=== PATIENT | female | born 1960 | race Caucasian/White ===

== ENCOUNTER 2025-05-08 08:29 | Day surgery (SDC) | payer MEDICARE, OTHER ==
--- NOTE | 2025-05-01 15:48 | ELECTROCARDIOGRAPH REPORT ---
[facility] Test Date: 2025-05-01 Test Time: 15:44:32 Pat Name: CARLEY MUNIZ Department: [facility]-PRE-OP Patient ID: [facility]-[id number] Room: Gender: F Stylist Apprentice: CRYSTAL : 1960 Requested By: CHIN MARTINI Order Number: [id number] Reading MD: Dr. Andrei Lao Measurements Intervals [place] Rate: 86 P: 54 SC: 169 QRS: 11 QRSD: 82 T: 48 QT: 335 QTc: 401 Interpretive Statements Sinus rhythm Left atrial enlargement Anteroseptal infarct, age indeterminate Electronically Signed On 05-04-2025 8:13:[address] Andrei Lao Please click the below link to view image of tracing.
[2025-05-01 16:12] LABS: BASOPHILS # (AUTO) 0.1 X10'3 (0-0.2); BASOPHILS % (AUTO) 0.9 % (0-1); EOSINOPHILS # (AUTO) 0.3 X10'3 (0-0.9); EOSINOPHILS % (AUTO) 5.9 % (0-6); LYMPHOCYTES # (AUTO) 1.4 X10'3 (1.1-4.8); LYMPHOCYTES % (AUTO) 23.6 % (21-51); MEAN CORPUSCULAR HEMOGLOBIN 26.9 PG (27.0-31.0); MEAN CORPUSCULAR HGB CONC 32.9 g/dL (33.0-36.5); MEAN CORPUSCULAR VOLUME 81.7 FL (78-98); MONOCYTES # (AUTO) 0.7 X10'3 (0-0.9); MONOCYTES % (AUTO) 11.3 % (2-12); NEUTROPHILS # (AUTO) 3.4 X10'3 (1.8-7.7); NEUTROPHILS % (AUTO) 58.3 % (42-75); PRE OP HEMATOCRIT 41.8 % (35.0-45.0); PRE OP HEMOGLOBIN 13.8 g/dL (12.0-16.0); PRE OP PLATELET COUNT 345 X10'3 (140-440); PRE OP WHITE BLOOD COUNT 5.8 10'3 (4.8-10.8); RED BLOOD COUNT 5.12 X10'6 (4.20-5.60); RED CELL DISTRIBUTION WIDTH 14.6 % (11.5-14.5)
[2025-05-01 16:27] LABS: ALBUMIN 3.8 G/DL (3.4-5.0); ALBUMIN/GLOBULIN RATIO 1.2 (1.1-1.5); ALKALINE PHOSPHATASE 128 IU/L (46-116); BLOOD UREA NITROGEN 25 MG/DL (7-18); BUN/CREATININE RATIO 25.5 (10.0-20.0); CALCIUM 9.9 MG/DL (8.5-10.1); CHLORIDE 107 MMOL/L (99-107); CREATININE 0.98 MG/DL (0.40-0.90); PRE OP ALT 38 U/L (30-65); PRE OP ANION GAP 4 (8-16); PRE OP AST 21 U/L (10-37); PRE OP BILIRUB, TOTAL 0.4 MG/DL (0.0-1.0); PRE OP GLUCOSE 97 MG/DL (70-104); PRE OP POTASSIUM 4.2 MMOL/L (3.4-5.1); PRE OP SODIUM 145 MMOL/L (135-145); TOTAL CARBON DIOXIDE 33.9 MMOL/L (24-32); eGFR 57 ML/MIN
[2025-05-08] VITALS (9 sets, daily range): BP systolic 110–141; BP diastolic 55–78; PULSE 81–85; RESP 11–20; TEMP 97.9; O2SAT 97–100
[~2025-05-08] VITALS: Ht 167.6 cm; Wt 96.9 kg
[2025-05-08] MEDS: ceFAZolin 2gm/dext,iso 50mL 50 ML IV ONE (05:30)
[~2025-05-08 08:29] MED LIST: ALBU8HFA INH; ATOR20TA66 PO; FERR325T35 PO; LEVO112T5 PO; LOSA1TAB36 PO; METF-436 PO; MONT-40 PO; OMEP20CA16 PO
[2025-05-08] MEDS: ringers solution, lacted 1,000 ML IV SCH (09:02)
[2025-05-08] MEDS: famotidine 20mg tablet PO ONE (09:02)
[2025-05-08] MEDS ORDERED: BUPIVAcaine 2.5mg/ml inj 50ml vial (contains preservative) ONE (09:39)
[2025-05-08] MEDS ORDERED: BUPIVACAINE liposomal/PF 13.3 MG/ML 10mL vial IM ONE (09:40)
[2025-05-08] MEDS ORDERED: LIDOcaine 1% 30ml preserv. free vial ONE (09:40)
[2025-05-08] MEDS ORDERED: HYDROmorphone/PF 0.2 MG/ML SYRINGE IV PRN ×2 (10:25)
[2025-05-08] MEDS ORDERED: ondansetron/PF 4mg/2ml inj IV PRN (10:25)
[2025-05-08] MEDS ORDERED: hydrALAZINE 20mg/ml inj. IV PRN (10:25)
[2025-05-08] MEDS ORDERED: ringers solution, lacted 1,000 ML IV SCH (10:25)
[2025-05-08] MEDS ORDERED: morphine 2 MG/ML inj. syringe IV PRN (10:25)
[2025-05-08] MEDS ORDERED: morphine 4 MG/ML inj SYRINge IV PRN (10:25)
[2025-05-08] MEDS ORDERED: labetalol 20mg/4ml (5mg/ml) syringe IV PRN (10:25)
[2025-05-08] MEDS ORDERED: sevoflurane 250ml liquid IH ONE (11:00)
--- NOTE | 2025-05-08 11:07 | HISTORY AND PHYSICAL ---
History & Physical Providers to CC CC: CHIN MARTINI MD ~ History of Present Illness Reason for Admit\Complaint: Spigelian hernia History of Present Illness Interval history and physical exam Patient is here today for elective repair of a spigelian hernia She has a left lower quadrant hernia defect that is quite symptomatic She was seen in the office greater than 30 days ago but denies any change in her past medical history (please see previous history and physical exam for all pertinent details) She is scheduled for robotic assisted, laparoscopic spigelian hernia repair with mesh Allergies: Coded Allergies: aspirin (Verified Allergy, Severe, ANAPHYLAXIS, 05/07/25) Home Medications Home Medications Active Reported Metformin Hcl 500 Mg Tablet 1 Tab PO BIDBL Pro-Air Inhaler (Albuterol) 8.5 Gm Inhaler 2 Puffs INH Q4HPRN PRN Ferosul (Ferrous Sulfate) 325 Mg (65 Mg Iron) Tablet 325 Mg PO DAILY Losartan-Hctz 50-12.5 Mg Tab (Losartan/Hydrochlorothiazide) 50 Mg-12.5 Mg Tablet 1 Tab PO DAILY LIPITOR tablet (Atorvastatin Calcium) 20 Mg Tablet 1 Tab PO DAILY Omeprazole 20 Mg Capsule.dr 1 Cap PO DAILY Montelukast Sodium 10 Mg Tablet 1 Tab PO DAILY Levothyroxine Sodium 112 Mcg Tablet 1 Tab PO DAILY ROS ROS Reviewed and negative Exam Vitals: Vital Signs Date Time Temp Pulse Resp B/P (MAP) Pulse Ox O2 Delivery O2 Flow Rate FiO2 05/08/25 09:55 16 98 Room Air 05/08/25 09:51 97.9 81 141/78 (99) General: 65-year-old female in no acute distress Chest: Lungs clear to auscultation bilaterally Cardiovascular: Regular rate and rhythm without murmurs Abdomen: Abdomen soft and nondistended In the left lower quadrant at the line of the linea semilunaris, just above the left inguinal canal as a palpable and partially reducible mass with the associated cough impulse Problems: (1) Spigelian hernia Assessment & Plan: The risks, benefits, and alternatives to a robotic assisted, laparoscopic spigelian hernia repair with mesh were discussed with the patient. Risks include, but are not limited to, bleeding, infection, injury to intra- abdominal structures, hernia recurrence and chronic postoperative pain. Patient verbalized understanding and wishes to proceed with surgery. We will do so today as scheduled CHIN MARTINI MD May 08, 2025 11:07
[2025-05-08] MEDS ORDERED: fentaNYL/PF 50MCG/1 ML 2ML syringe ONE (11:11)
[2025-05-08] MEDS ORDERED: midazolam 1 mg/ML 2ml injection ONE (11:12)
[2025-05-08] MEDS ORDERED: BUPIVAcaine/PF 2.5mg/ml (0.25%) 10ml vial ONE (11:14)
[2025-05-08] MEDS: BUPIVACAINE liposomal/PF 13.3 MG/ML 10mL vial IM ONE (11:56)
[2025-05-08] MEDS ORDERED: ondansetron/PF 4mg/2ml inj ONE (13:14)
[2025-05-08] MEDS ORDERED: rocuronium 10mg/ml inj IV ONE (13:14)
[2025-05-08] MEDS ORDERED: propofol inj 20 ML IV ONE (13:14)
[2025-05-08] MEDS ORDERED: dexamethasone sod phosphate 4mg/ml inj. ONE (13:14)
[2025-05-08] MEDS ORDERED: sugammadex 200mg/2ml injection IV ONE (13:20)
--- NOTE | 2025-05-08 13:53 | OPERATIVE REPORT ---
Operative Report Providers to CC CC: MOI MARTINI MD ~ Date of Procedure: May 08, 2025 Pre-Operative Diagnosis: Spigelian hernia Post-Operative Diagnosis 4 cm incarcerated incisional hernia Procedure Performed Robotic assisted, laparoscopic incarcerated 4 cm incisional hernia repair with mesh Transversus abdominis plane nerve block by injection using 266 mg of Exparel Surgeon: Moi Martini MD FACS Valve Inserter None Anesthesiologist: Prince Tiwari Type of Anesthesia: General Findings: 4 cm fascial defect in the left lower quadrant, lateral to the linea semilunaris and associated with a surgical scar consistent with incisional hernia Large amount of incarcerated sigmoid colon Wound class I Complications None Prosthetics\Implants used: 5 x 10 cm ProGrip mesh with a small patch of coated polyester mesh over exposed portion of ProGrip Estimated Blood Loss: 10 cc Specimen Removed: None Description of Procedure: Patient was brought to the operating room and identified by the nursing staff and the attending physician. Patient was placed supine and general anesthesia was induced. Preoperative antibiotics were given. Abdomen was prepped and draped in the standard sterile fashion. Veress needle technique was used at ferreira's point in the abdomen was insufflated without incident. Optical trocar was used to gain access to the abdomen under laparoscopic visualization. No gross abnormalities were noted within the mid abdominal compartment. In the left lower quadrant, there was omentum and what appeared to be sigmoid colon, tented up to the anterior abdominal wall and herniated through what appeared to be a fascial defect. This was not reducible with the external compression. Additional, 8.5 mm robotic trocars were placed in the left mid abdomen and right lower quadrant under laparoscopic visualization. Patient was placed in Trendelenburg position with the left side up. Mesh and suture was passed into the abdomen and the [employer] Shanelle robotic arm was docked to the patient. Instruments were guided into the abdomen under laparoscopic visualization. Attempts at mobilizing the herniated and incarcerated sigmoid colon was unsuccessful. It was densely adherent to the hernia sac. A preperitoneal plane was then developed above the defect and within the preperitoneal space, the plane was developed and carried towards the fascial defect. In doing so, I was able to enter the preperitoneal fat space within the hernia sac and continued the mobilization. I was able to mobilize and reduce the sigmoid colon, however, it continued to be densely adherent to the hernia sac. Peritoneum develop several peritoneal rents and a large amount of the hernia sac was left adherent to the sigmoid colon once it was reduced. The defect measured 4 cm x 2 cm. It was quite lateral to the linea semilunaris and correlated with a surgical trocar scar in the left lower quadrant. This was most consistent with an incisional hernia. It was well above the inguinal canal. Preperitoneal space was developed circumferentially to the defect allowing adequate space for good mesh overlap. The defect was closed with an absorbable running V lock suture. It easily opposed. ProGrip mesh was passed into the preperitoneal space, centered at the defect and measured about five or 6 x 10 cm. The peritoneal rent was then closed, however, due to several areas of peritoneum that were removed with the hernia sac, I was not able to completely cover the ProGrip mesh. A small piece of coated polyester mesh was passed into the abdomen and centered at the exposed portion of mesh. This was sutured in place with the absorbable suture. [place] were retrieved and instruments removed. The de Shanelle robotic arm was undocked from the patient. Edges of the mesh patch overlying the exposed area of ProGrip was secured with absorbable tacks. The 12 mm port site was removed and its fascial defect closed percutaneously with 0 Vicryl suture. Remaining po rts were removed and the abdomen was allowed to deflate. Skin was closed at all sites with a 4-0 Monocryl sutures in a subcuticular fashion. Dressings were applied. Abdominal binder was applied. Patient was awakened and taken to the postanesthesia care unit in stable condition. Counts repoted as correct: Yes MOI AMRTINI MD May 08, 2025 13:53
[2025-05-08] MEDS: oxyCODONE/APAP 5-325mg tablet PO PRN (14:41)
--- NOTE | 2025-05-10 11:40 | PATHOLOGY REPORT ---
[facility] [address] [place] [address] SURGICAL PATHOLOGY REPORT CaseNumber: [id number] Surgeon:Moi Deluna M.D. CLINICAL INFORMATION CLINICAL INFORMATION: Cholecystitis. Ventral hernia. DIAGNOSIS DIAGNOSIS: GALLBLADDER, ROBOTIC-ASSISTED LAPAROSCOPIC GREGG - ACUTE CHOLECYSTITIS WITH CHOLELITHIASIS - NO DYSPLASIA OR MALIGNANCY MICROSCOPIC DESCRIPTION MICROSCOPIC DESCRIPTION: Performed. GROSS DESCRIPTION GROSS DESCRIPTION: Received in a container of formalin labeled with the patient's name, number, and " gallbladder" is a disrupted gallbladder which measures 9 cm long by 3 cm in diameter. The serosa is s mooth and caldwell. The surgical bed is unremarkable. Sectioning reveals a small amount of viscous dark gr een bile and a 3.5 cm yellow-caldwell stone. The mucosa is red and granular. A discrete mass lesion is no t identified. The wall of the gallbladder measures up to 0.9 cm thick. Welfare Worker sections of the neck and wall of the gallbladder are submitted as A1.The time at which the specimen was removed was 1628. The time at which the specimen was placed in formalin was 1631. (sdb) Electronically signed by: Tejinder Maxwell M.D. 05/10/2025 11:08:00 AM
== END 2025-05-08 14:49 | disposition home or self-care (01) ==
LOC: PAS 08:29
PROVIDERS: ATTEND Surgery
DX: K43.0 Incisional hernia with obstruction, without gangrene (principal); I10 Essential (primary) hypertension; K21.9 Gastro-esophageal reflux disease without esophagitis; Z79.890 Hormone replacement therapy; Z79.899 Other long term (current) drug therapy; Z88.6 Allergy status to analgesic agent; Z98.890 Other specified postprocedural states; Z88.8 Allergy status to other drugs, medicaments and biological substances
CPT/HCPCS: 36415; 49594; 64488; 80053; 82948; 85025; 88304; 93005; A4215; A4618; C1713; C1781; J0666; J1100; J2003; J2250; J2405; J2704; J3010; J3490; J7030; J7120; Z7506; Z7508; Z7512; Z7610

== ENCOUNTER 2025-05-12 19:21 | Emergency (ER) | payer MEDICARE, OTHER ==
[~2025-05-12] VITALS: Ht 167.6 cm; Wt 95.5 kg
[2025-05-12 19:29] VITALS: BP 138/78; PULSE 77; RESP 18; TEMP 98.4; O2SAT 99
--- NOTE | 2025-05-12 20:10 | Physician Documentation ---
History of Present Illness ~ Chief Complaint: Wound Re-Check Stated Complaint: HERNIA OPERATION AND NOT SURE IF IT IS NORMAL Time Seen by MD: 19:31 Source: patient, family, RN/MD HPI Patient is seen today with complaints of bruising after her hernia surgery. Patient states date of surgery with on Wednesday about five days ago. Patient denies any appetite changes or nausea, vomiting, diarrhea, chest pain, shortness of breath, fevers or chills or increased abdominal pain. Patient has no other concern today or complaint other than the bruising that is now in her skin in the pubic area. She has no other concern or complaint at this time. Medication Reconciliation Allergies: Coded Allergies: aspirin (Verified Allergy, Severe, ANAPHYLAXIS, 05/12/25) Scheduled Atorvastatin Calcium (LIPITOR tablet), 1 TAB PO DAILY, (Reported) Ferrous Sulfate (Ferosul), 325 MG PO DAILY, (Reported) Levothyroxine Sodium (Levothyroxine Sodium), 1 TAB PO DAILY, (Reported) Losartan/Hydrochlorothiazide (Losartan-Hctz 50-12.5 Mg Tab), 1 TAB PO DAILY, (Reported) Metformin Hcl (Metformin Hcl), 1 TAB PO BIDBL, (Reported) Montelukast Sodium (Montelukast Sodium), 1 TAB PO DAILY, (Reported) Omeprazole (Omeprazole), 1 CAP PO DAILY, (Reported) Scheduled PRN albuterol inhaler (Pro-Air Inhaler), 2 PUFFS INH Q4HPRN PRN for wheezing, (Reported) Review of Systems Constitutional: Denies: chills, fever, weakness Eyes: Denies: pain, blurred vision ENT: Denies: ear pain, nose pain, throat pain, mouth pain Respiratory: Denies: cough, shortness of breath Cardiovascular: Denies: chest pain, palpitations Gastrointestinal: Denies: abdominal pain, nausea, vomiting Genitourinary: Denies: burning, dysuria Female Genitalia: Denies: vaginal discharge, pelvic pain Neurological: Denies: headache, dizziness Musculoskeletal: Denies: pain, swelling Integumentary: Denies: rash, lesions Allergic/Immunologic: Denies: hives, itching Hematologic/Lymphatic: Denies: no symptoms reported Psychiatric: Denies: depression, anxiety Physical Exam Vital Signs: Temperature: 98.4, Source: Oral, Heart Rate: 77, Respiratory Rate: 18, BP: 138/78, Pulse Oximetry: 99, Weight: 95.450 Physical Exam General: Awake and Alert, no acute distress. HEENT: Conjunctiva pink, Sclera clear, Mucus Membranes moist. Neck: Supple without masses and tenderness. Resp: Unlabored. Lungs clear to auscultation bilaterally. Heart: Regular Rate and rhythm, normal S1 and S2 without murmur, rub or gallop. Abdomen: Have appendicitis off, nondistended, no significant tenderness, can changes consistent with laparoscopic surgery of the abdomen, normoactive bowel sounds, patient does have superficial ecchymosis inferiorly in the pubic area/lower abdomen. Extremities: No cyanosis,clubbing or edema. Skin: Warm and Dry. Progress Results/Orders Results/Orders Vital Signs 05/12/25 19:29 Temp 98.4 Pulse 77 Resp 18 B/P (MAP) 138/78 Pulse Ox 99 Medical Decision Making Findings Patient is seen today with complaints of bruising after her hernia surgery. Patient states date of surgery with on Wednesday about five days ago. Patient denies any appetite changes or nausea, vomiting, diarrhea, chest pain, shortness of breath, fevers or chills or increased abdominal pain. Patient has no other concern today or complaint other than the bruising that is now in her skin in the pubic area. She has no other concern or complaint at this time. Patient will follow up with general surgeon and keep appointment as scheduled. Patient will call the office Wednesday with any further questions. Patient was reassured today that these bruising changes are expected and not out of the ordinary half a surgery. Patient will return to ED with any worsening, concerning or changing symptoms or fever or chills or shortness of breath or increased abdominal pain. Departure Disposition: HOME / SELF CARE / HOMELESS Impression: Primary Impression: Wound Additional Impression: Postoperative examination Condition: Stable Discharge Instructions: Sutured Wound Care Additional Instructions: Patient will follow up with general surgeon and keep appointment as scheduled. Patient will call the office Wednesday with any further questions. Patient was reassured today that these bruising changes are expected and not out of the ordinary half a surgery. Patient will return to ED with any worsening, concerning or changing symptoms or fever or chills or shortness of breath or increased abdominal pain. Referrals: NO PRIMARY CARE PROVIDER (PCP) Signature Scribe Signature: No scribe Attestation: [place] Mariee [facility] May 12, 2025 20:10
== END 2025-05-12 20:20 | disposition home or self-care (01) ==
LOC: ER 19:23
DX: Z48.89 Encounter for other specified surgical aftercare (principal); Z88.6 Allergy status to analgesic agent
CPT/HCPCS: 99281

== ENCOUNTER 2025-09-04 10:08 | Emergency (ER) | payer MEDICARE, OTHER ==
[~2025-09-04] VITALS: Ht 167.6 cm; Wt 100.2 kg
[2025-09-04 10:11] VITALS: TEMP 96.9
--- NOTE | 2025-09-04 12:22 | Physician Documentation ---
History of Present Illness ~ Chief Complaint: Leg Pain Stated Complaint: POSS DVT LEFT LEG Time Seen by MD: 11:58 Mode of Arrival: POV HPI 65-YEAR-OLD FEMALE PRESENTS TO THE ED AFTER HAVING AN LEFT KNEE REPLACED ON August. THE PATIENT IS CONCERNED BECAUSE SHE HAS DEVELOPED INCREASED PAIN AND REDNESS AT THE INCISION SITE. DENIES ANY FEVERS OR NAUSEA OR VOMITING OR ANY DRAINAGE. Day of Onset: Sep 04, 2025 Tetanus witin 5 years: No Medication Reconciliation Allergies: Coded Allergies: aspirin (Verified Allergy, Severe, ANAPHYLAXIS, 09/04/25) Scheduled Atorvastatin Calcium (LIPITOR tablet), 1 TAB PO DAILY, (Reported) Ferrous Sulfate (Ferosul), 325 MG PO DAILY, (Reported) Levothyroxine Sodium (Levothyroxine Sodium), 1 TAB PO DAILY, (Reported) Losartan/Hydrochlorothiazide (Losartan-Hctz 50-12.5 Mg Tab), 1 TAB PO DAILY, (Reported) Metformin Hcl (Metformin Hcl), 1 TAB PO BIDBL, (Reported) Montelukast Sodium (Montelukast Sodium), 1 TAB PO DAILY, (Reported) Omeprazole (Omeprazole), 1 CAP PO DAILY, (Reported) Scheduled PRN albuterol inhaler (Pro-Air Inhaler), 2 PUFFS INH Q4HPRN PRN for wheezing, (Reported) Review of Systems All Other Systems at this time: Reviewed and Negative ROS As stated above in the HPI, otherwise all systems are reviewed and negative. Physical Exam Vital Signs: Temperature: 96.9, Source: Temporal, Heart Rate: 80, Respiratory Rate: 17, BP: 148/75, Pulse Oximetry: 99, Weight: 100.200 Oxygen Flow Rate: 0 Physical Exam General: Alert, no apparent distress. Extremities: Normal range of motion, no deformity. LEFT LOWER EXTREMITY AT THE PATELLA THERE IS A BANDAGE/ INCISION WITH SURROUNDING ERYTHEMA, NO DRAINAGE,WARM TO TOUCH Neurologic: Oriented x4. Psychiatric: Normal mood and affect. Skin: Normal color, warm and dry. No edema, no ecchymosis. Progress Results/Orders Results/Orders Orders - MAULIK LENTZ EYELET RIVETER Culture Blood (09/04/25 12:13) Chest,Single View (09/04/25 12:35) Monitor (09/04/25 12:13) Saline Lock (09/04/25 12:13) Completed Orders - MAULIK LENTZ H EYELET RIVETER Cbc/Diff (09/04/25 12:13) Chest,Single View (09/04/25 12:35) Procalcitonin (09/04/25 12:13) BMP (09/04/25 12:13) Lacticsepsis (09/04/25 12:13) Vital Signs 09/04/25 09/04/25 09/04/25 09/04/25 10:11 11:54 12:53 13:56 Temp 96.9 Pulse 80 77 78 Resp 16 17 16 18 B/P (MAP) 148/75 145/80 (101) 148/80 Pulse Ox 99 97 99 O2 Flow Rate 0 0 Laboratory Tests Test 09/04/25 12:36 White Blood Count 6.1 Red Blood Count 4.08 L Hemoglobin 10.9 L Hematocrit 33.7 L Mean Corpuscular Volume 82.7 Mean Corpuscular Hemoglobin 26.8 L Mean Corpuscular Hemoglobin Concent 32.4 L Red Cell Distribution Width 15.9 H Platelet Count 451 H Mean Platelet Volume 7.4 Neutrophils (%) (Auto) 67.1 Lymphocytes (%) (Auto) 17.5 L Monocytes (%) (Auto) 8.4 Eosinophils (%) (Auto) 5.8 Basophils (%) (Auto) 1.2 H Neutrophils # (Auto) 4.1 Lymphocytes # (Auto) 1.1 Monocytes # (Auto) 0.5 Eosinophils # (Auto) 0.4 Basophils # (Auto) 0.1 CBC Comment Sodium Level 143 Potassium Level 3.9 Chloride Level 106 Carbon Dioxide Level 29.1 Anion Gap 8 Blood Urea Nitrogen 28 H Creatinine 1.05 H Estimated GFR/1.73 m2 52 BUN/Creatinine Ratio 26.7 H Glucose Level 100 Lactic Acid Level 0.6 Calcium Level 8.7 Albumin 3.5 Procalcitonin < 0.05 Chemistry Comments Microbiology Date/Time Source Procedure Growth Status 09/04/25 12:42 Blood Arm Right Blood Culture - Preliminary NEGATIVE (LESS THAN 24 HOURS) Resulted Medical Decision Making Additional information obtaine: N/A Findings DR. HASSAN EVALUATED THE PATIENT HE IS THE ONE WHO OPERATED ON HER.. HE EXPLAINED TO THE PATIENT THAT HER KNEE LOOKS TOTALLY FINE AND IS IN A NORMAL INFLAMMATORY STATE BASED ON THE LENGTH OF SYMPTOMS DATE OF SURGERY. AT THIS TIME SHE WILL MONITOR FOR ANY WORSENING SYMPTOMS AND RETURN FOR ANY CONCERNS. General Diff Dx:Considerations: Unlikely: Abrasion, Contusion, Fracture, Hematoma, Laceration, Malunion, Neurovascular injury, Open fracture, Sprain, Ulcer, Other Knee Diff Dx:Considerations: Include: Abrasion, Arthritis, Contusion, DJD, Fracture-femur, Fracture-fibula, Fracture-patella, Fracture-tibia, Gout, Hematoma, Laceration, Meniscus injury, Neurovascular injury, Open fracture, Rheumatoid arthritis, Septic, Sprain, Sprain-MCL, Sprain-LCL, Sprain-ACL, Sprain-PCL, Other Ankle Diff Dx:Considerations: Unlikely: Abrasion, Arthritis, Contusion, DJD, Fracture-metatarsal, Fracture-fibula, Fracture-tarsal, Fracture-tibia, Gout, Hematoma, Laceration, Malunion, Neurovascular injury, Nonunion, Open fracture, Osteomyelitis, Rheumatoid arthritis, Sprain, Septic, Ulcer, Other Foot Diff Dx:Considerations: Unlikely: Abrasion, Arthritis, Cellulitis, Contusion, Dislocation, DJD, Fracture-metatarsal, Fracture-phalynx, Fracture- tarsal, Gout, Hematoma, Ingrown toenail, Laceration, Malunion, Neurovascular injury, Open fracture, Paronychia, Puncture, Rheumatoid, Sprain, Septic, Subungual hematoma, Ulcer, Other Toe Diff Dx:Considerations: Unlikely: Abrasion, Cellulitis, Contusion, Dislocation, Felon, Fracture, Hematoma, Laceration, Neurovascular injury, Open fracture, Paronychia, Subungual hematoma, Other Departure Disposition: 01 HOME / SELF CARE / HOMELESS Impression: Primary Impression: Postoperative examination Condition: Improved Discharge Instructions: Wound Care, Adult Referrals: NO PRIMARY CARE PROVIDER (PCP) Signature Scribe Signature: g Attestation: Scribed for Maulik Lentz Farm Equipment Maintenance Supervisor by Maulik Kemp NP . 09/04/25 18:42 MAULIK LENTZ NP Sep 04, 2025 12:22
--- NOTE | 2025-09-04 12:47 | RADIOLOGY REPORT ---
EXAM: DI CHEST,SINGLE VIEW HISTORY: INFECTION COMPARISON: None TECHNIQUE: Portable AP view of the chest was performed. FINDINGS: No pneumothorax, consolidative infiltrates, or pulmonary edema. The heart is enlarged. There is a moderate to large retrocardiac hiatal hernia. IMPRESSION: 1. Cardiomegaly without evidence of acute intrathoracic process. 2. Moderate to large hiatal hernia.
[2025-09-04 12:51] LABS: MEAN PLATELET VOLUME 7.4 FL (7.4-10.4); RED CELL DISTRIBUTION WIDTH 15.9 % (11.5-14.5)
[2025-09-04 13:02] LABS: CREATININE 1.05 MG/DL (0.40-0.90); TOTAL CARBON DIOXIDE 29.1 MMOL/L (24-32); eCRCL 49 ML/MIN; eGFR 52 ML/MIN
[2025-09-04 13:56] VITALS: BP 148/80; PULSE 78; RESP 18; O2SAT 99
== END 2025-09-04 13:57 | disposition home or self-care (01) ==
LOC: ER 10:09
DX: M25.562 Pain in left knee (principal)
CPT/HCPCS: 36415; 71045; 80048; 83605; 84145; 85025; 87040; 99284